=== PATIENT | female | born 1945 | race Caucasian/White ===

== ENCOUNTER → 2022-11-14 13:51 | Outpatient (CLI) | payer MEDICARE, SELFPAY ==
--- NOTE | 2022-11-14 13:57 | US_ITS ---
PROCEDURE: US PELVIC transabdominal CLINICAL INDICATION: POST MENOPAUSAL BLEEDING COMPARISON: No exams were available for comparison FINDINGS: Difficult examination Uterus noted but not measured Ovaries are not visualized transabdominally. IMPRESSION: 1. Difficult examination 2. Uterus is likely seen but not measured. 3. Neither ovaries are seen. 4. Transvaginal ultrasound will be performed to better visualize the pelvic structures. Dictated by: Jeremy Somers MD 11/14/2022 17:25 Jeremy Somers MD in [facility] 11/14/2022 17:25
--- NOTE | 2022-11-14 13:57 | US_ITS ---
Ultrasound Sonograher: ESTRELLITA PROCEDURE: US TRANSVAGINAL CLINICAL INDICATION: POST MENOPAUSAL BLEEDING COMPARISON: US US PELVIC from 11/14/2022 FINDINGS: UTERUS: 9cm x 5cmx 4cm with a combined endometrial thickness of 30.4mm. LEFT OVARY: Not visualized RIGHT OVARY: Not visualized Both ovaries are not seen. There is no fluid in the cul-de-sac. IMPRESSION: 1. Uterus is enlarged for a postmenopausal woman. 2. The endometrium is 30.4 millimeters and grossly thickened. 3. Ovaries were not visualized 4. With a thick endometrium need to rule out endometrial hyperplasia/carcinoma or a polyp/fibroid. Would suggest a gynecology consult. Dictated by: Jeremy Somers MD 11/14/2022 17:21 Jeremy Somers MD in [facility] 11/14/2022 17:21
== END ==
LOC: RAD 13:51
PROVIDERS: PCP Family Medicine; Visit Provider Family Medicine
DX: N95.0 Postmenopausal bleeding (principal)
CPT/HCPCS: 76830; 76856